=== PATIENT | female | born 1975 | race Caucasian/White ===

== ENCOUNTER 2020-10-09 18:54 | Emergency (ER) | payer OTHER, MEDICAID ==
[~2020-10-09] VITALS: Ht 165.1 cm; Wt 99.8 kg
[2020-10-09] MEDS ORDERED: LEXAPRO10 MG PO (19:25)
[2020-10-09] MEDS ORDERED: TRAZODONE HCL50 MG PO (19:26)
[2020-10-09] MEDS ORDERED: SUDAFED 12-HOU120 MG PO (19:26)
[2020-10-09] MEDS ORDERED: ZYRTEC10 M3 PO (19:26)
[2020-10-09] MEDS ORDERED: B-12500 MCG PO (19:27)
[2020-10-09] MEDS ORDERED: MULTI-VITAMIN1 EACH PO (19:27)
[2020-10-09] MEDS ORDERED: HYDROCODON-ACE1 EA10 PO (22:29)
[2020-10-17] MEDS ORDERED: HYDROCODON-ACE1 EA11 PO (13:41)
== END 2020-10-09 23:14 | disposition home or self-care (01) ==
LOC: ED 18:54
DX: S82.831A Other fracture of upper and lower end of right fibula, initial encounter for closed fracture (principal); R10.9 Unspecified abdominal pain; J45.909 Unspecified asthma, uncomplicated; Z88.5 Allergy status to narcotic agent; Z88.8 Allergy status to other drugs, medicaments and biological substances; Z79.899 Other long term (current) drug therapy; Z20.822 Contact with and (suspected) exposure to COVID-19
CPT/HCPCS: 73610; 74177; 80053; 81001; 83735; 85025; 96375; 96376; 99284-25; C9803; J1170; J2405; J7030; Q9967; U0003

== ENCOUNTER 2020-10-17 15:28 | Day surgery (SDC) | payer OTHER, MEDICAID ==
[~2020-10-17] VITALS: Ht 165.1 cm; Wt 105.0 kg
--- NOTE | 2020-10-17 09:16 | NUR ---
NURSE INTO ROOM WITH COVID PPE PRECAUTIONS. PATIENT COVID SWABBED, TOLERATED WELL. SENT TO LAB.
--- NOTE | 2020-10-17 11:14 | NUR ---
JACOB BOND INTO ROOM, PROVIDED NERVE BLOCK. PATIENT TOLERATED WELL. PLAN TO RECHECK CBG AT 1200 PER JACOB BOND.
--- NOTE | 2020-10-17 15:17 | NUR ---
1500: PT ARRIVES BACK TO DS RM 3 FROM PACU AWAKE AND ALERT. PT HAS 2L VIA NC IN PLACE, SATS 100%. PT RATES PAIN 8/10 WHEN ASKED AND DENIES ANY NAUSEA. PT RESTIN IN BED WITH EVEN AND UNLABORED RESP, ON PERSONAL CELL PHONE CONVERSING WITH MOTHER AT BEDSIDE. PT PROVIDED GRAPE JUICE, WATER AND CRACKERS. PT USES CELL PHONE TO CHECK BLOOD SUGAR MONITOR ON LEFT ARM, 107. DC CRITERIA EXPLAINED TO PT, CALL LIGHT WITHIN REACH.
[~2020-10-17 15:28] MED LIST: B-12500 MCG PO; HYDROCODON-ACE1 EA10 PO; HYDROCODON-ACE1 EA11 PO; LEXAPRO10 MG PO; MULTI-VITAMIN1 EACH PO; SUDAFED 12-HOU120 MG PO; TRAZODONE HCL50 MG PO; ZYRTEC10 M3 PO
--- NOTE | 2020-10-17 15:53 | NUR ---
1545: PT UP TO BEDSIDE COMMODE WITH RN NUPUR. PT SITS AT SIDE OF BED WITH LEGS DANGLING, DENIES INCREASED PAIN IN RIGHT ANKLE OR DIZZINESS WITH POSITION CHANGE. PT ABLE TO PIVOT ON LEFT FOOT WITH SLIGHT TOE TOUCH TO RIGHT FOOT, VOIDS APPROX 750 MLS YELLOW URINE WITH NO PROBLEMS. PT ABLE TO PIVOT BACK TO STRETCHER, RIGHT FOOT ELEVATED ON PILLOWS WITH ICE IN PLACE. PT STATES RLE "FEELS MORE NUMB" AND APPEARS COMFORTABLE. PT HAS MANY QUESTIONS, THIS RN PHONES DR. STEVENS FOR CLARIFICATION.
--- NOTE | 2020-10-17 15:55 | NUR ---
10/17/20 1555 Sheets,Roshni 1340 PT ARRIVED TO PACU ON 6L VIA MASK, PT ASLEEP AND GRMACING NOTED. 1341 PT WAKES AND REPORTS PAIN 8/10 PAIN, PT VERY DROWSY AND UNABLE TO OPEN HER EYES. PERFECT BINDER FEEDER OFFBEARER AT BEDSIDE. 1346 O2 REMOVED, PT MOANING AND GRIMACING. PT REPORTS PAIN IN THE BACK OF HER CALF/FOOT. 1359 PAIN MEDICATION GIVEN PER EMAR. RN ENCOURAGES BREATHING DUE TO O2 SAT LOW 90S. 1408 PT REPORTS NO CHANGE IN PAIN, PERFECT BINDER FEEDER OFFBEARER AT BEDSIDE AND PLANS TO DO A BLOCK. PAIN MEDICATION GIVEN. 4L NC PLACED, O2 SAT 90%. PT TURNED TO LEFT SIDE. 1415 PERFECT BINDER FEEDER OFFBEARER AT BEDSIDE DOING A BLOCK WITH SECOND RN AT BEDSIDE. 1424 MEDICATION GIVEN PER PERFECT BINDER FEEDER OFFBEARER. 1450 PT ROLLED TO HER BACK AND PT REPORTS NO CHANGE IN PAIN. PT RESTING IN BED WITH EYES CLOSED AND NO GRIMACING NOTED. VSS. PLAN OF CARE DISCUSSED. 1500 REPORT TO DS RN. PT MOTHER AT BEDSIDE.
--- NOTE | 2020-10-17 16:10 | NUR ---
PT RESTING IN BED WITH MOTHER AT BEDSIDE ON PERSONAL CELL PHONE. PT RATES PAIN 8/10 WHEN ASKED. MOTHER QUESTIONS PT ABOUT NUMBNESS BUT STILL BEING IN PAIN AND PT RECANTS AND STATES PAIN 7/10 AND "PRESSURE."
--- NOTE | 2020-10-17 16:45 | NUR ---
INTO ROOM TO PROVIDE PATIENT WITH DISCHARGE INSTRUCTION. PATIENT RATES PAIN 3/10 ON PAIN SCALE. ANSWERED QUESTIONS AND CONCERNS. PATIENT THEN TRANSFERED TO WHEELCHAIR. DRESSING C/D/I. PROVIDED FRESCH ICE WATER AND ICE PACKS. PATIENT THEN TRANSFERED SELF TO CAR BY HOPPING, APPARED TO BE AWARE OF NON WEIGHT BEARING WHILE TRANSFERING TO CAR. CALL TO DR. STEVENS OFFICE TO ARRANGE FOR PATIENT TO MANAGER OF FINANCE KNEE SCOOTER. ISAAC REPORTED THE CLINIC DID NOT HAVE KNEE SCOOTERS AND QUESTIONED WETHER OR NOT WOULD BE ABLE TO PROVIDE SCRIPT FOR DME. LEFT MESSAGE FOR DR. STEVENS TO FOLLOW UP WITH HIS STAFF. PATIENT IS GOING TO FOLLOW UP WITH CLINIC TOMORROW.
--- NOTE | 2020-10-21 07:04 | OR ---
[facility] [address] [place], [place] [address] Signed DATE OF OPERATION: 10/17/2020 SURGEON: Yoana Ortiz MD PREOPERATIVE DIAGNOSIS: Gomes B ankle fracture, right ankle, unstable. POSTOPERATIVE DIAGNOSIS: Gomes B ankle fracture, right ankle, unstable. PROCEDURE PERFORMED: Open reduction and internal fixation of right lateral malleolus. RACK WORKER: Jade Allen PA-C. Jade was present and critical for all portions of procedure. ANESTHESIA: General. BLOOD LOSS: 50 mL. TOURNIQUET TIME: Zero. IMPLANTS: A 3 x 130 FibuLock with two distal locking screws. BRIEF HISTORY: Piter is a 44-year-old female with pain in her ankle after an injury. She had radiographs in the ER, which showed a mildly displaced Gomes B ankle fracture. She had tenderness medially, but no widening. Risks and benefits of operative treatment were discussed with her and she elected to proceed. DESCRIPTION OF PROCEDURE: Once consent was obtained, she was taken to the operating room after adequate anesthesia. She was placed on the operating room table. All downside pressure points were well padded. The right leg was prepped and draped in a standard sterile fashion. A sterile tourniquet was placed. The fibula was then marked out using the image Electronically Signed By: YOANA ORTIZ MD 10/21/20 0704 PATIENT NAME: PITER WILKERSON OPERATIVE REPORT DATE OF : 71 REPORT #: [id number] PHYSICIAN: YOANA ORTIZ MD PCP: OTHER PCP REPORT IS CONFIDENTIAL AND NOT TO BE RELEASED WITHOUT AUTHORIZATION [facility] [address], [place] [address] Signed intensifier and a percutaneous tenaculum was used to reduce and hold the fracture. Once this was accomplished, the 1 cm incision was made distally to the tip of the fibula. Blunt dissection was taken down to the tip. The guidewire was introduced from the tip of the fibula up through the center of the fibula into the body. This was followed by the large distal reamer. The guidewire was exchanged , which again was advanced up the femur. The 3.2 mm reamer was then introduced from the tip of the fibula up the fibula proximally. This was buried. A 3 x 130 FibuLock was obtained, placed on the physician office clin asst guide and advanced from the fibula proximally until it was well-seated. Once it was seated, the proximal fins were deployed. The first distal locking was placed in the inferior hole distally. The 2nd was placed in the oblique hole anteriorly. Both of these were done under image intensifier guidance and the length of the screw and placement of the michelle was assessed and found to be good. The reduction of the mortise was good. The physician office clin asst was removed as was the tenaculum. The wounds were cleansed with normal saline and closed with justino and dressed with an Allevyn dressing, 4 x 8, and Rigo wrap. She was placed back into a fracture boot. She tolerated the procedure well. All sponge, needle, and instrument counts were correct. Yoana Ortiz MD BA/MODL /[id number] Copies: ~ Electronically Signed By: YOANA ORTIZ MD 10/21/20 0704 PATIENT NAME: PITER WILKERSON OPERATIVE REPORT DATE OF : 71 REPORT #: [id number] PHYSICIAN: YOANA ORTZI MD PCP: OTHER PCP REPORT IS CONFIDENTIAL AND NOT TO BE RELEASED WITHOUT AUTHORIZATION
== END 2020-10-17 16:45 | disposition home or self-care (01) ==
LOC: DS 15:28
PROVIDERS: ATTEND Specialist
PROC: 0QSJ04Z Reposition Right Fibula with Internal Fixation Device, Open Approach (ICD-10-PCS; principal; 2020-10-17 14:15)
DX: S82.61XA Displaced fracture of lateral malleolus of right fibula, initial encounter for closed fracture (principal); G89.18 Other acute postprocedural pain; W01.0XXA Fall on same level from slipping, tripping and stumbling without subsequent striking against object, initial encounter; X50.1XXA Overexertion from prolonged static or awkward postures, initial encounter; Z20.822 Contact with and (suspected) exposure to COVID-19
CPT/HCPCS: 01480; 64445; 64447; 64450; 73610; 76942; 84703; A9270; C1713; J0690; J1100; J2001; J2250; J2704; J2795; J3010; J7121; U0003

== ENCOUNTER 2021-05-05 15:02 | Emergency (ER) | payer OTHER ==
[~2021-05-05] VITALS: Ht 165.1 cm; Wt 104.8 kg
--- OUTSIDE RECORDS SUMMARY | 2021-05-05 15:04 | XMS ---
PreManage Notification: CARMEL WILKERSON [employer] Developer Events No recent Security Events currently on file CRITERIA MET - PDMP CARE PROVIDERS KADIE ACOSTA [facility] Current PHONE: [phone] [facility], Clinic/Center: Dental Current INCRj PHONE: Unknown Amparo Reagan [employer] Sales Consultant/Laundry Helper Current PHONE: [phone] RUSSE[facility] AASHISH PHONE: Unknown Ubaldo has no Care Guidelines for this patient. Oren VISIT COUNT (12 MO.) 2 TO[facility] TOTAL 2 NOTE: Visits indicate total known visits. ED/UCC VISIT TRACKING (12 MO.) 05/05/2021 15:03 [facility] [place] TYPE: Emergency COMPLAINT: - ABDOMINAL PAIN 10/09/2020 18:[address] [facility] [place] TYPE: Emergency COMPLAINT: - ABD PAIN,VOMITING,DIARRHEA DIAGNOSES: - Unspecified abdominal pain - Other longwall headgate operator (current) drug therapy - Unspecified asthma, uncomplicated - Allergy status to other drugs, medicaments and biological substances - Nausea with vomiting, unspecified - Other fracture of upper and lower end of right fibula, initial encounter for closed fracture - Allergy status to narcotic agent INPATIENT VISIT TRACKING (12 MO.) No inpatient visits to display in this time frame [email or web address]
[2021-05-05] MEDS ORDERED: OMEPRAZOLE40 MG PO (15:30)
[2021-05-05] MEDS ORDERED: ONDANSETRON ODT8 MG PO (19:29)
== END 2021-05-05 19:30 | disposition home or self-care (01) ==
LOC: ED 15:02
DX: R10.31 Right lower quadrant pain (principal); J45.909 Unspecified asthma, uncomplicated; Z88.5 Allergy status to narcotic agent; Z88.6 Allergy status to analgesic agent; Z79.899 Other long term (current) drug therapy
CPT/HCPCS: 36415; 74177; 80048; 80503; 81001; 83690; 85025; 96375; 96376; 99284-25; J1170; J2405; J7030

== ENCOUNTER 2024-11-20 06:30 | Day surgery (SDC) | payer BC ==
[~2024-11-20] VITALS: Ht 165.1 cm; Wt 74.0 kg
[~2024-11-20 06:30] MED LIST changes: +LACTATED RINGER'S 1,000 ML IV SCH; +MELATONIN5 M2 PO; +NORTRIPTYLINE H10 MG PO; +OMEPRAZOLE40 MG PO; +ONDANSETRON ODT8 MG PO; +PROTONIX40 M1 PO; +WEGOVY1 MG/0.5 M SUB-Q; +WELLBUTRIN SR150 MG PO
[2024-11-20 06:57] VITALS: BP 99/69
[2024-11-20] MEDS ORDERED: CEFAZOLIN SODIUM 2 GM in SODIUM CHLORIDE 0.9% 100 ML IV SCH (07:00)
[2024-11-20] MEDS ORDERED: IBLOOD GLUCOSE TEST STRIP 1 EA TEST VI PRN (07:00)
[2024-11-20] MEDS ORDERED: LIDOCAINE HCL 1% 5 ML SDV INJ ONE (07:00)
[2024-11-20] MEDS ORDERED: NIGHTTIME SLEEP25 M1 PO (07:04)
[2024-11-20] MEDS ORDERED: HYDROCODONE/ACETA 5/325 TAB PO PRN (07:45)
[2024-11-20] MEDS ORDERED: LIDOCAINE HCL 2% 5 ML SDV ONE (07:53)
[2024-11-20] MEDS ORDERED: DEXAMETHASONE SOD PHOS 4 MG/ML VIAL ONE (07:53)
[2024-11-20] MEDS ORDERED: fentaNYL citrate 100 MCG/2 ML VIAL ONE (07:53)
[2024-11-20] MEDS ORDERED: ACETAMINOPHEN 1,000 MG/100 ML VIAL ONE (07:53)
[2024-11-20] MEDS ORDERED: KETAMINE in NS 50 MG/5 ML SYR ONE (07:54)
[2024-11-20] MEDS ORDERED: HYDROCODON-ACE1 EA10 PO (08:37)
--- NOTE | 2024-11-20 08:52 | NUR ---
11/20/24 0852 Oralia Rosa 0837: PT ARRIVED TO PACU VIA STRETCHER. PT ON 6L VIA MASK. NON AROUSABLE AT THIS TIME. PT HAS DRESSING TO RIGHT LOWER EXTREMITY THAT IS C/D/I. GOOD CAP REFIL 0846: PT TITRATED TO RA AT THIS TIME.
[2024-11-20 09:09] VITALS: BP 108/67
--- NOTE | 2024-11-20 09:29 | NUR ---
0905- PT REPORT RECIEVED FROM TRANSPORTATION CONSULTANT. VITALS, PAIN, AND N/V ARE NOTED. PT PRESENTS TIRED BUT WAKES WITH VERBAL STIMULATION. PT EDUCATION PROVIDED FOR DC PROCEDURE- PT VERBALIZED UNDERSTANDING. WATER, PUDDING, AND WARM BLANKET PROVIDED. CALL LIGHT IN REACH.
--- NOTE | 2024-11-20 09:41 | NUR ---
1941 PT USED CALL LIGHT TO ALERT THAT PT NEEDS TO URINATE. PT UP TO BEDSIDE COMMODE. PT DOES NOT REPORT ANY DIZZINESS OR NAUSEA. PT ABLE TO STAND AND MOVE TO COMMODE WITHOUT ASSISTANCE. PT ABLE TO URINATE 250 MLS OF CLEAR YELLOW URINE. PT BACK IN BED WITHOUT ASSISTANCE. PT HAS CALL LIGHT WITHIN REACH AND BED IS LOW AND LOCKED.
[2024-11-20 10:20] VITALS: BP 96/67
[2024-11-20] MEDS ORDERED: SEVOFLURANE 250 ML BTL INH ONE (11:05)
--- NOTE | 2024-11-20 11:12 | NUR ---
1033- DC TEACHING DONE, PT VERBALIZED UNDERSTANDING OF INFORMATION. PT SELF DRESSED AND AMBULATED TO WHEELCHAIR WITHOUT ISSUE. PT TAKEN TO FRONT OF HOSPTIAL WHILE WE WAITED FOR RIDE. PT TRANSFERRED TO CAR WITHOUT ISSUE.
--- NOTE | 2024-11-23 07:06 | OR ---
[facility] [address], [place] [address] Signed DATE OF OPERATION: 11/20/2024 SURGEON: Yoana Ortiz MD PREOPERATIVE DIAGNOSIS: Painful hardware, right ankle. POSTOPERATIVE DIAGNOSIS: Painful hardware, right ankle. PROCEDURE PERFORMED: Removal of screws, right ankle, exploration of peroneal tendons. EARLY CHILDHOOD TEACHER: None. ANESTHESIA: General. BLOOD LOSS: None. TOURNIQUET TIME: 21 minutes. BRIEF HISTORY: Piter is a 49-year-old female who had an ankle fracture, underwent ORIF with FibuLock. She had pain laterally over the screw heads and wished to have them removed. MRI confirmed no intra-articular pathology with mild tendinosis of the peroneal tendons. Risks and benefits of operative treatment were discussed with her and she elected to proceed. DESCRIPTION OF PROCEDURE: Once consent was obtained, she was taken to the operating room. After adequate anesthesia, she was placed on operating room table with a hip bump. The leg was then placed in a well-padded proximal thigh tourniquet and prepped and draped in a standard sterile fashion. The leg was exsanguinated using Esmarch bandage. Tourniquet inflated to 250 mmHg. The three incisions from the prior surgery were marked out. The anterior incision was then opened and carried down to the screw, which was located under image intensifier guidance. The screw head was cleared off soft tissue and removed with the Electronically Signed By: YOANA ORTIZ MD 11/23/24 0706 PATIENT NAME: PITER CORDOVA OPERATIVE REPORT DATE OF : 71 REPORT #: [id number] PHYSICIAN: YOANA ORTIZ MD PCP: CAYDEN GREENE PAC REPORT IS CONFIDENTIAL AND NOT TO BE RELEASED WITHOUT AUTHORIZATION [facility] [address], [place] [address] Signed screwdriver. The hole was curetted and cleaned. The posterior incisions were then connected into a single incision. This was carried through skin and subcutaneous tissue and again under image intensifier guidance, taken down to the screw head, which was located and cleared of soft tissue. The screw was backed out and removed and the screw hole was curetted. The peroneal sheath posteriorly was then opened and was found to be quite tight particularly right where it turned the corner around the inferior fibula. This was released and the peroneal tendons were inspected. There were no longitudinal splits or other pathology found in the peroneal tendons. The wound was copiously irrigated with normal saline and the peroneal sheath was closed with 3-0 Monocryl. The skin was closed with 3-0 Monocryl and Steri-Strips. The wound was sealed with LiquiBand and dressed with an Acticoat-7 dressing and Rigo wrap. She tolerated the procedure well. All sponge, needle, and instrument counts were correct. Yoana Ortiz MD BA/NICCI /[id number] Copies: ~ Electronically Signed By: YOANA ORTIZ MD 11/23/24 0706 PATIENT NAME: PITER CORDOVA OPERATIVE REPORT DATE OF : 71 REPORT #: [id number] PHYSICIAN: YOANA ORTIZ MD PCP: CAYDEN GREENE PAC REPORT IS CONFIDENTIAL AND NOT TO BE RELEASED WITHOUT AUTHORIZATION
== END 2024-11-20 10:42 | disposition home or self-care (01) ==
LOC: DS 06:30
PROVIDERS: ATTEND Specialist
PROC: 0SPF04Z Removal of Internal Fixation Device from Right Ankle Joint, Open Approach (ICD-10-PCS; principal; 2024-11-20 08:00)
DX: T84.84XA Pain due to internal orthopedic prosthetic devices, implants and grafts, initial encounter (principal); K21.9 Gastro-esophageal reflux disease without esophagitis; F43.10 Post-traumatic stress disorder, unspecified; J45.909 Unspecified asthma, uncomplicated; Z79.899 Other long term (current) drug therapy; Z88.5 Allergy status to narcotic agent; Z88.6 Allergy status to analgesic agent; Z90.49 Acquired absence of other specified parts of digestive tract
CPT/HCPCS: 01480; 76000; J0131; J0688; J1100; J2003; J2405; J2704; J3010; J3490; J7121